=== PATIENT | male | born 1975 | race Caucasian/White ===

== ENCOUNTER 2024-02-02 11:04 | Emergency (ER) | payer OTHER ==
--- NOTE | 2024-02-02 12:14 | XRAY Report ---
PROCEDURE: Knee 4+V RT INDICATIONS: Trauma TECHNIQUE: 4 views of the knee(s) were acquired. COMPARISON: None. FINDINGS: Bones: No fractures or dislocations. No suspicious bony lesions. Soft tissues: Moderate knee joint effusion. No suspicious soft tissue calcifications or masses. IMPRESSION: No displaced fractures. Moderate joint effusion. Internal derangement not excluded. Reviewed by: Nithin Gu MD on 02/02/2024 12:13 PM PDT Approved by: Nithin Gu MD on 02/02/2024 12:13 PM PDT Station ID: [id number]
--- NOTE | 2024-02-02 12:35 | ED Physician Documentation ---
History of Present Illness - Stated complaint Stated Complaint: RT KNEE INJ - Chief complaint Chief Complaint: Ext Problem - Additonal information Additional information: Patient is a 48-year-old male presenting to the emergency department with right knee pain. 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 Patient notes this happened a few weeks ago. The swelling and bruising have mostly gone now but he continues to have knee pain and feels it is unstable when going up and down stairs. He took vacation Time from his work but continues to have pain to his knee with concerns with returning to work now. Patient denies any redness swelling warmth to his leg. He denies any fevers or chills. No previous injury to right knee. PD PAST MEDICAL HISTORY - Past Medical History Past Medical History: No Cardiovascular: None Respiratory: None Neuro: None Endocrine/Autoimmune: None GI: None : None HEENT: None Psych: None Musculoskeletal: None Derm: None - Past Surgical History Past Surgical History: Yes Ortho: Spine surgery - Present Medications Home Medications: Ambulatory Orders Medication Instructions Recorded Confirmed No Known Home Medications 02/02/24 02/02/24 - Allergies Allergies/Adverse Reactions: Allergies Allergy/AdvReac Type Severity Reaction Status Date / Time grass pollen Allergy Respiratory Verified 02/02/24 11:24 - Social History Does the pt smoke?: Yes Smoking Status: Current every day smoker - Immunizations Immunizations are current?: Yes PD ED PE NORMAL - Vitals Vital signs reviewed: Yes - General General: Alert and oriented X 3 - HEENT HEENT: Atraumatic - Neck Neck: Supple, no meningeal sign - Cardiac Cardiac: RRR, No murmur, No gallop, No rub - Respiratory Respiratory: No respiratory distress, Clear bilaterally - Derm Derm: Other - Extremities Extremities: No deformity, Other (Right knee shows minimal swelling present no appreciable bruising laxity noted on examination on anterior and posterior drawer test. Sensation intact in distal extremity. Patient able to bear weight on it.) - Neuro Neuro: Alert and oriented X 3 - Psych Psych: Normal mood Results - Vitals Vitals: Vital Signs - 24 hr 02/02/24 11:18 Temperature 36.5 C Heart Rate 62 Respiratory 18 Rate Blood Pressure 149/97 H O2 Saturation 97 Oxygen O2 Source Room air PD Medical Decision Making - ED course ED course: Patient is a 48-year-old male presenting to the emergency department with right knee pain. Patient has difficulty with walking and pain with movement however he is able to bear weight on right knee. Injury occurred a few weeks ago after missing a rung on a ladder while working. Patient denies any previous injuries to his right knee. He denies seeing anyone else for this problem. He notes bruising has improved but swelling has resolved. X-rays of right knee here in the emergency department show no displaced fractures. Moderate joint effusion. Internal derangement not excluded. Discussed with patient no acute fractures or displacement however moderate joint effusion noted. Given laxity on examination concern for possible ligament tear. Discussed with patient he needs to follow-up With orthopedics he notes he does not have a PCP. Instructed patient we will give knee immobilizer here in the emergency department and he has crutches already that he will continue using. Instructed patient ibuprofen elevation and ice will help heal his knee as well. Patient understands and is agreeable with this plan.Patient instructed to return with any new or worsening pain swelling or any other new or worsening symptoms. Departure - Departure Disposition: 01 Home, Self Care Clinical Impression: Pain in extremity Condition: Good Instructions: ANTI-INFLAMMATORY, General Follow-Up: Benjamin Thomas MD [Provider Admit Priv/Credential] - Comments: You were seen here in the emergency department for your right knee pain your workup here in the emergency department was reassuring I have started you on ibuprofen that you can take [id number] 800 mg every 8 hours for pain control. Continue with ice and elevation at home. Continue crutches and have given you a knee immobilizer to help stabilize your knee when going up and down stairs. Return to the emergency department for any worsening pain swelling numbness tingling. Follow-up with orthopedics have given you the phone number for follow-up. Forms: PCP List
[2024-02-02 13:41] VITALS: BP 168/115; O2SAT 98
== END 2024-02-02 13:32 | disposition home or self-care (01) ==
LOC: ED 11:04
DX: M25.561 Pain in right knee (principal); M25.461 Effusion, right knee; F17.200 Nicotine dependence, unspecified, uncomplicated
CPT/HCPCS: 99283

== ENCOUNTER 2024-02-19 07:42 | Outpatient (CLI) | payer OTHER ==
--- NOTE | 2024-02-19 17:20 | XRAY Report ---
Knee 4+V RT HISTORY: 48 years of age, PAIN IN RIGHT KNEE TECHNIQUE: Knee 4+V RT COMPARISON: 02/02/2024 FINDINGS/IMPRESSION: Right knee: Small ossification about the medial tibial plateau, unchanged from prior exam, representi ng prior injury. No right knee effusion. No acute fracture or dislocation. Joint spaces are well main tained. Frontal view of the left knee is unremarkable. Reviewed by: Ginette Parker MD on 02/19/2024 5:19 PM PDT Approved by: Ginette Parker MD on 02/19/2024 5:19 PM PDT Station ID: [id number]
== END 2024-02-19 07:43 | disposition home or self-care (01) ==
LOC: DI 07:42
PROVIDERS: ATTEND Physician Assistant Surgical
DX: M25.561 Pain in right knee (principal)